=== PATIENT | male | born 1955 | race Caucasian/White ===

== ENCOUNTER 2020-12-11 15:31 | Inpatient (IN) | payer MEDICARE, OTHER ==
[~2020-12-11] VITALS: Ht 177.8 cm; Wt 122.7 kg
--- NOTE | 2020-12-11 18:17 | ED.ADGEN ---
Past Medical History Past Medical History: CAD, Diabetes-Type II, High Cholesterol, Hypertension Past Surgical History: Other Additional Past Surgical Histo: quad bypass Smoking Status: Former Smoker Alcohol Use: Rarely General Adult EDM: Chief Complaint: FINGER INJURY HPI: HPI: Patient is a 65 year old male who presents emergency department with complaints of pain in his left index finger after a folding chair he was sitting on yasir apsed and crushed his finger. Patient states he is right-handed. He reports decreased range of motion in the affected digit, obvious deformity, and pain. Patient reports his last tetanus shot was greater than 5 years ago. He states he has received both doses of the [employer] Covid immunization. Any other pain or complaints. He currently rates the pain in the affected digit a 3 out of 10 on the pain scale, pain increases with palpation. He denies taking anything for pain prior to arrival. Patient states that he last ate or drink something at noon today. Review of Systems: Review of Systems: Complete ROS is negative unless otherwise noted in HPI. Allergies: Allergies: Allergies Coded Allergies Type Severity Reaction Last Updated Verified metoprolol Allergy Severe ANAPHYLAXIS 12/11/20 Yes Physical Exam: PE: See Above Constitutional: Well developed, well nourished, no acute distress, non-toxic appearance. [] HENT: Normocephalic, atraumatic, bilateral external ears normal, nose normal. [] Eyes: PERRLA, EOMI, conjunctiva normal, no discharge. [] Neck: Normal range of motion, no stridor. [] Cardiovascular:Heart rate regular rhythm Lungs & Thorax: Respirations even and unlabored, no retractions, no respiratory distress Skin: Warm, dry, no erythema, no rash; open laceration to the left index finger, near complete amputation with damage to fingernail, bleeding controlled with bandage in place. [] Extremities: Left index finger: Deformity to the distal phalanx, no cyanosis, ROM limited due to injury Neurologic: Alert and oriented X 3, no focal deficits noted. [] Psychologic: Affect normal, judgement normal, mood normal. [] Current Patient Data: Labs: Laboratory Tests Test 12/11/20 18:06 Glucose (Fingerstick) 100 mg/dL (70-99) H Vital Signs: Vital Signs Date Time Temp Pulse Resp B/P (MAP) Pulse Ox O2 Delivery O2 Flow Rate FiO2 12/11/20 18:21 56 18 174/82 (112) 99 12/11/20 17:36 98.1 18.0 98.1 EKG: EKG: [] Heart Score: C/O Chest Pain: No Risk Scores: Score 0 - 3: 2.5% MACE over next 6 weeks - Discharge Home Score 4 - 6: 20.3% MACE over next 6 weeks - Admit for Clinical Observation Score 7 - 10: 72.7% MACE over next 6 weeks - Early Invasive Strategies Radiology/Procedures: Radiology/Procedures: PROCEDURE: HAND LEFT 3V EXAM: XR HAND_LEFT 3 VIEWS 12/11/2020 6:05 PM CLINICAL INDICATION: Left index finger laceration COMPARISON: None TECHNIQUE: 3 views of the left index finger FINDINGS: There is a large soft tissue laceration of the tip of the second finger. There is an oblique fracture of the shaft of the second distal phalanx, minimally displaced. No radiopaque foreign body. IMPRESSION: Large soft tissue laceration at the tip the second finger with underlying distal phalanx fracture. [] Course & Med Decision Making: Course & Med Decision Making Pertinent Labs and Imaging studies reviewed. (See chart for details) 1811-I spoke with Dr. Chery about the patient. He requests admission to the hospitalist and will schedule surgery for tomorrow morning. 1823-spoke with Dr. Chowdhury who is the admitting physician, and care was assumed following discussion of patient. Will admit patient for open fracture left index finger Patient's vital signs stable. Patient remains afebrile, appears nontoxic, respirations even and unlabored. Patient will be admitted to the medica l/surgical floor. Patient's case and plan of care also discussed with Dr. Roldan [] Kadeem Disclaimer: Kadeem Disclaimer: This electronic medical record was generated, in whole or in part, using a voice recognition dictation system. Departure Departure Impression: Primary Impression: Crushing injury of left index finger Disposition: ADMITTED INPATIENT Admitting Physician: JACINTO Zee) Condition: STABLE Referrals: YUN FIORE MD (PCP) Problem Qualifiers Primary Impression: Crushing injury of left index finger Encounter type: initial encounter Qualified Codes: S67.191A - Crushing injury of left index finger, initial encounter AZRA MOREIRA MEAT STRINGER Dec 11, 2020 18:17
[2020-12-11] MEDS ORDERED: DIPH,PERTUSS(ACELL),TET VAC/PF 0.5 ML SYRINGE. VAX IM ONE (18:30)
[2020-12-11] MEDS ORDERED: MORPHINE SULFATE 4 MG/ML VIAL. IV PRN (18:45)
[2020-12-11] MEDS ORDERED: ONDANSETRON PF 4 MG/2 ML VIAL. IV PRN (18:45)
--- NOTE | 2020-12-11 18:51 | RAD ---
EXAM: XR HAND_LEFT 3 VIEWS 12/11/2020 6:05 PM CLINICAL INDICATION: Left index finger laceration COMPARISON: None TECHNIQUE: 3 views of the left index finger FINDINGS: There is a large soft tissue laceration of the tip of the second finger. There is an obliq ue fracture of the shaft of the second distal phalanx, minimally displaced. No radiopaque foreign bod y. IMPRESSION: Large soft tissue laceration at the tip the second finger with underlying distal phalanx fracture. Electronically signed by: Latasha Coleman MD (12/11/2020 6:48 PM) [id number]
--- NOTE | 2020-12-11 19:04 | PDOC1 ---
History and Physical Date of Admission Date of Admission DATE: 12/11/20 TIME: 18:53 Identification/Chief Complaint Chief Complaint Left second finger injury Source Source: Caregiver, Patient History of Present Illness History of Present Illness Patient is a 65-year-old male with past medical history DM2, CAD, CHF, who presents to the ED with complaints of left second finger injury. Patient states she was seated in the folding along chair when he leaned forward to put his shoes on in his chair collapsed on his left index finger. He reports pain 10/10 at that time. In the ED he received morphine 4 mg with some moderate improvement. States his last tetanus shot was around 10 years ago, so he received tetanus vaccination in the ED. Patient also received IV Rocephin. Consultation was placed to orthopedic surgery in the ED. Will admit patient for further medical management. Past Medical History Past Medical History CAD, CHF, DM2, HLD, NSTEMI Past Surgical History Past Surgical History CABG x4, right hip replacement right second toe amputation, right third toe partial amputation Family History Family History CAD, DM2 Social History Smoke: Quit ALCOHOL: rare Drugs: None Current Medications Current Medications Current Medications Diphtheria/ Tetanus/Acell Pertussis (ADACEL TDap SYRINGE) 0.5 ml ONCE ONCE VAX IM Last administered on 12/11/20at 18:18; Start 12/11/20 at 18:30; Stop 12/11/20 at 18:31; Status DC Ondansetron HCl (Zofran) 4 mg PRN Q8HRS PRN IV NAUSEA/VOMITING; Start 12/11/20 at 18:45; Stop 12/12/20 at 18:44 Morphine Sulfate (Morphine Sulfate) 4 mg PRN Q2HR PRN IV PAIN; Start 12/11/20 at 18:45; Stop 12/12/20 at 18:44 Cefazolin Sodium/ Dextrose 50 ml @ 100 mls/hr 1X ONCE IV ; Start 12/11/20 at 19:00; Stop 12/11/20 at 19:29 Allergies Allergies: Coded Allergies: metoprolol (Verified Allergy, Severe, ANAPHYLAXIS, 12/11/20) ROS Review of System GENERAL: No history of weight change, weakness or fevers. SKIN: No bruising, hair changes or rashes. EYES: No blurred, double or loss of vision. NOSE AND THROAT: No history of nosebleeds, hoarseness or sore throat. HEART: Denies chest pain, denies palpitations. LUNGS: Denies cough, hemoptysis, wheezing or shortness of breath. GASTROINTESTINAL: Denies nausea, vomiting, abdominal pain. GENITOURINARY: Denies dysuria, frequency, urgency, hematuria. NEUROLOGIC: Denies history of numbness, tingling, tremor or weakness. PSYCHIATRIC: Denies anxiety, denies depression. ENDOCRINE: No history of heat or cold intolerance, polyuria or polydipsia. EXTREMITIES: Left index finger injury. Denies muscle weakness, joint pain, pain on walking or stiffness. Physical Exam Physical Exam General: Alert, Oriented X3, Cooperative, No acute distress HEENT: PERRLA, EOMI Lungs: Clear to auscultation, Normal air movement Heart: RRR, no murmurs Cardiovascular: S1, S2 Abdomen: Normal bowel sounds, Soft, No tenderness Extremities: Left second finger wrapped in bandage with bloody gauze. 2+ bilateral lower extremity edema. No clubbing, No cyanosis Skin: No rashes, No significant lesion Neuro: Normal speech, Normal tone, Sensation intact Psych/Mental Status: Mental status NL, Mood NL Vitals Vitals Vital Signs Date Time Temp Pulse Resp B/P (MAP) Pulse Ox O2 Delivery O2 Flow Rate FiO2 12/11/20 17:36 98.1 55 175/87 (116) 94 18.0 98.1 Labs Labs Laboratory Tests Test 12/11/20 18:06 Glucose (Fingerstick) 100 mg/dL (70-99) Laboratory Tests Test 12/11/20 18:06 Glucose (Fingerstick) 100 mg/dL (70-99) VTE Prophylaxis Ordered VTE Prophylaxis Devices: No VTE Pharmacological Prophylaxi: Yes Assessment/Plan Assessment/Plan Left second finger crush injury with partial amputation DM2 Unspecified CHF CAD Plan: Consultation placed to orthopedic surgery in ED Anticipate surgery tonight or tomorrow morning Empiric antibiotics and tetanus vaccination received in the ED Pain management HDSS insulin Resume home medications FEN - Cardiac diet PPX - Heparin FULL CODE Dispo - inpatient for above Advance Care Planning: Total time spent [id number] with patient 16 minutes in discussion with goals of care, comfort care, end-of-life care, pain management, code status; patient names his (Nataly Mills) as surrogate decision-maker. Justifications for Admission Other Justification GLYNN DAIGLE MD Dec 11, 2020 19:04
[2020-12-11 19:13] LABS: BASO # 0.1 x10^3/uL (0.0-0.2); BASO % 1 % (0-3); EOS # 0.3 x10^3/uL (0.0-0.7); EOS % 4 % (0-3); HEMATOCRIT 43.8 % (39.0-53.0); HEMOGLOBIN 15.6 g/dL (13.0-17.5); LYMPH # 2.1 x10^3/uL (1.0-4.8); LYMPH % 26 % (24-48); MEAN CORPUSCULAR HEMOGLOBIN 31 pg (25-35); MEAN CORPUSCULAR HGB CONC 36 g/dL (31-37); MEAN CORPUSCULAR VOLUME 87 fL (79-100); MONO # 0.7 x10^3/uL (0.0-1.1); MONO % 9 % (0-9); NEUT # 4.9 x10^3/uL (1.8-7.7); NEUT % 61 % (31-73); PLATELET COUNT 198 x10^3/uL (140-400); RED BLOOD COUNT 5.03 x10^6/uL (4.30-5.70); RED CELL DISTRIBUTION WIDTH 14.2 % (11.5-14.5); WHITE BLOOD COUNT 8.2 x10^3/uL (4.0-11.0)
[2020-12-11] MEDS ORDERED: BISACODYL 10 MG SUPP.RECT. PR PRN (19:15)
[2020-12-11] MEDS ORDERED: ONDANSETRON PF 4 MG/2 ML VIAL. IVP PRN (19:15)
[2020-12-11] MEDS ORDERED: MAG HYDROX/ALUMINUM HYD/SIMETH 30 ML ORAL.SUSP PO PRN (19:15)
[2020-12-11] MEDS ORDERED: MAGNESIUM HYDROXIDE 2,400 MG/30 ML ORAL.SUSP. PO PRN (19:15)
[2020-12-11] MEDS ORDERED: CALCIUM CARBONATE 500 MG TAB.CHEW PO PRN (19:15)
[2020-12-11] MEDS ORDERED: ACETAMINOPHEN 325 MG TABLET. PO PRN (19:15)
[2020-12-11] MEDS ORDERED: HYDROmorphone 2 MG/ML VIAL IVP PRN (19:15)
[2020-12-11] MEDS ORDERED: MORPHINE SULFATE 10 MG/ML VIAL. IV PRN (19:15)
[2020-12-11] MEDS ORDERED: ZOLPIDEM 5 MG TABLET. PO PRN (19:15)
[2020-12-11] MEDS ORDERED: MORPHINE SULFATE 2 MG/ML VIAL. IV PRN (19:15)
[2020-12-11] MEDS ORDERED: HYDROcodone/APAP 5/325MG 1 TAB TABLET PO PRN ×2 (19:15)
[2020-12-11] MEDS ORDERED: DEXTROSE 50% 25 GM / 50ML DISP.SYRIN. IV PRN (19:15)
[2020-12-11] MEDS ORDERED: IV DEXTROSE 5% 250 ML BAG. IV PRN (19:15)
[2020-12-11] MEDS ORDERED: oxyCODONE/APAP 5/325 1 TAB TABLET PO PRN ×2 (19:15)
[2020-12-11 19:23] LABS: CALCIUM 8.7 mg/dL (8.5-10.1); CREATININE 0.9 mg/dL (0.7-1.3); GFR 84.4; POTASSIUM 3.6 mmol/L (3.5-5.1)
[2020-12-11 21:13] VITALS: BP 171/88
--- NOTE | 2020-12-11 21:15 | NUR ---
pt. arrived on unit at 2112 by wheelchair from the ER. Pt. does not complain of any pain at this time. They are very pleasant and alert. Call light was placed within reach and bed in lowest position. Will continue to monitor.
[2020-12-11] MEDS: HEPARIN for SUB-Q USE 5,000 UNIT/ML VIAL. SQ SCH (22:00)
[2020-12-11 22:55] VITALS: BP 134/69
--- NOTE | 2020-12-11 23:58 | NUR ---
Heparin non-administered tonight. Pt. is having surgery early tomorrow morning.
[2020-12-12] MEDS ORDERED: LISI20TA18 PO (00:33)
[2020-12-12] MEDS ORDERED: INSU100V13 SQ (00:33)
[2020-12-12] MEDS ORDERED: ATOR40TA59 PO (00:33)
[2020-12-12] MEDS ORDERED: METF10007 PO (00:33)
[2020-12-12] MEDS ORDERED: CARV3.1210 PO (00:33)
[2020-12-12] MEDS ORDERED: AMLO-186 PO (00:33)
[2020-12-12] MEDS ORDERED: INSU100I17 SQ (00:33)
[2020-12-12] MEDS: HEPARIN for SUB-Q USE 5,000 UNIT/ML VIAL. SQ SCH ×3 (06:00→21:47)
[2020-12-12] MEDS ORDERED: BUPIVACAINE MPF 0.5% 30 ML VIAL. ONE (07:10)
[2020-12-12] MEDS ORDERED: PROPOFOL 10 MG/ML (20ML) VIAL. IV ONE (07:20)
[2020-12-12] MEDS ORDERED: LIDOCAINE 2% PF 5 ML VIAL. ONE (07:20)
--- NOTE | 2020-12-12 07:53 | CONS ---
DATE OF CONSULTATION: 12/12/2020 ORTHOPEDIC CONSULTATION CHIEF COMPLAINT: Left index finger fracture and partial amputation. HISTORY OF PRESENT ILLNESS: The patient is a 65-year-old male with an otherwise well controlled diabetes who had a chair ____ and the mechanism of the chair crushed and lacerated and broke his finger. He is right hand dominant and had involvement of the left index finger. He does have some throbbing pain as of now and he does note a history of amputation of 2 of his toes due to deformities from recurrence of hammer toes and pressure was putting on the other toes. PAST MEDICAL HISTORY: He has a medical history of type 2 diabetes, otherwise well controlled; hypercholesterolemia; hypertension and coronary artery disease. PAST SURGICAL HISTORY: Toe amputations and multiple previous hammertoe surgeries and a quadruple bypass. SOCIAL HISTORY: He is a former smoker, retired . Rare alcohol use. Denies drug use. ALLERGIES: INCLUDE METOPROLOL, WHICH IS AN ANAPHYLACTIC ALLERGY. REVIEW OF SYSTEMS: Really significant only for the left index finger injury at present. Again, diabetes is well controlled. He has no other pertinent medical problems and has received both doses of COVID in the immunization. Denies any chest pain, shortness of breath, fever, chills, focal weakness, numbness, tingling or other constitutional symptoms. PHYSICAL EXAMINATION: VITAL SIGNS: A pleasant, cooperative, 65-year-old male, alert and oriented, no acute distress. MUSCULOSKELETAL: Examination of the left index finger, he does have a near complete amputation which is hanging on by a small bridge of skin, nail bed is damaged and he does have an open fracture of the left distal phalanx. Flexor and extensor tendons are otherwise intact. He has normal examination of the contralateral right hand, bilateral wrists, elbows, shoulders. Well-healed amputated toes as described above as well. LABORATORY DATA: Fingerstick glucose last evening on admission was 100 mg/dL. He is afebrile. X-rays show an oblique fracture, approximately the midpoint area of the distal flange of the left index finger and overlying soft tissue laceration. IMPRESSION: Near complete amputation of left index finger with nail bed damage and open fracture. TREATMENT PLAN: I went over with him the treatment options of washout and attempted fixation. He is adamant that he really would just like the finger taken off and shortened rather than facing potential diabetic complications of fixation and additional procedures. He has been through this many times with his toe surgeries and he is very happy and resigned to the fact that his left index finger would be shorter and he would like to minimize the amount of procedures or potential complication. I told him as a result that we would have to shorten up the bone to obtain reasonable coverage and he agrees to proceed with this plan and has been n.p.o. since midnight and he wants to proceed with surgical evaluation and treatment. He is aware of the possibility of infection, sensitivity, possibility of additional procedures if inadequate healing is obtained as well as medical or other anesthetic complications. ROXNAE DR: Logan TID: [id number]
--- NOTE | 2020-12-12 07:59 | PDOC ---
[facility] PROGRESS NOTE Date of Service DOS: DATE: 12/12/20 TIME: 07:56 Chief Complaint Chief Complaint A/P: Left second finger crush injury with partial amputation - no further testing prior to planned surgery DM2 - basal bolus plus insulin when eating Chronic diastolic CHF -continue BENNETT, beta-joanne, statin, aspirin CAD - stable, s/p CABG. Cont perioperative BB. Plan: Consultation placed to orthopedic surgery in ED Anticipate surgery tonight or tomorrow morning Empiric antibiotics and tetanus vaccination received in the ED Pain management HDSS insulin Resume home medications FEN - Cardiac diet PPX - Heparin FULL CODE Dispo - inpatient for above Advance Care Planning: Total time spent [id number] with patient 16 minutes in discussion with goals of care, comfort care, end-of-life care, pain management, code status; patient names his (Nataly Mills) as surrogate decision-maker. History of Present Illness History of Present Illness Mr Mills is a 65-year-old male with past medical history DM2, CAD s/p CABG, CHF, HLD who presents to the ED with complaints of left second finger injury. Patient states she was seated in the folding along chair when he leaned forward to put his shoes on in his chair collapsed on his left index finger. He reports pain 10/10 at that time. In the ED he received morphine 4 mg with some moderate improvement. States his last tetanus shot was around 10 years ago, so he rec eived tetanus vaccination in the ED. Patient also received IV Rocephin. Consultation was placed to orthopedic surgery in the ED. Admitted patient for further medical management. Seen pre and postoperatively. Finger dressing continues to fall off. Was fully attached. Afebrile Vitals/I&O Vitals/I&O: Vital Signs Date Time Temp Pulse Resp B/P (MAP) Pulse Ox O2 Delivery O2 Flow Rate FiO2 12/11/20 22:55 98.0 47 18 134/69 (90) 94 Room Air 98.0 12/11/20 17:36 18.0 I & O 12/11/20 12/11/20 12/12/20 15:00 23:00 07:00 Intake Total 50 ml Balance 50 ml Physical Exam General: Alert, Cooperative Heart: Regular rate, Normal S1, Normal S2 Lungs: Clear Abdomen: Normal bowel sounds, Soft Extremities: No clubbing, No cyanosis Skin: No rashes, No breakdown Labs Labs: Laboratory Tests Test 12/11/20 18:06 12/11/20 19:00 12/11/20 20:47 12/11/20 21:26 Glucose (Fingerstick) 100 mg/dL (70-99) 122 mg/dL (70-99) White Blood Count 8.2 x10^3/uL (4.0-11.0) Red Blood Count 5.03 x10^6/uL (4.30-5.70) Hemoglobin 15.6 g/dL (13.0-17.5) Hematocrit 43.8 % (39.0-53.0) Mean Corpuscular Volume 87 fL (79-100) Mean Corpuscular Hemoglobin 31 pg (25-35) Mean Corpuscular Hemoglobin Concent 36 g/dL (31-37) Red Cell Distribution Width 14.2 % (11.5-14.5) Platelet Count 198 x10^3/uL (140-400) Neutrophils (%) (Auto) 61 % (31-73) Lymphocytes (%) (Auto) 26 % (24-48) Monocytes (%) (Auto) 9 % (0-9) Eosinophils (%) (Auto) 4 % (0-3) Basophils (%) (Auto) 1 % (0-3) Neutrophils # (Auto) 4.9 x10^3/uL (1.8-7.7) Lymphocytes # (Auto) 2.1 x10^3/uL (1.0-4.8) Monocytes # (Auto) 0.7 x10^3/uL (0.0-1.1) Eosinophils # (Auto) 0.3 x10^3/uL (0.0-0.7) Basophils # (Auto) 0.1 x10^3/uL (0.0-0.2) Sodium Level 144 mmol/L (136-145) Potassium Level 3.6 mmol/L (3.5-5.1) Chloride Level 107 mmol/L (98-107) Carbon Dioxide Level 28 mmol/L (21-32) Anion Gap 9 (6-14) Blood Urea Nitrogen 17 mg/dL (8-26) Creatinine 0.9 mg/dL (0.7-1.3) Estimated GFR (Cockcroft-Gault) 84.4 Glucose Level 106 mg/dL (70-99) Calcium Level 8.7 mg/dL (8.5-10.1) SARS-CoV-2 Antigen (Rapid) Negative (NEGATIVE) Test 12/12/20 06:39 Glucose (Fingerstick) 144 mg/dL (70-99) Comment Review of Relevant I have reviewed the following items sean (where applicable) has been applied. Medications: Current Medications Medications (Trade) Dose Ordered Sig/Iliana Route PRN Reason Start Time Stop Time Status Last Admin Dose Admin Diphtheria/ Tetanus/Acell Pertussis (ADACEL TDap SYRINGE) 0.5 ml ONCE ONCE VAX IM 12/11/20 18:30 12/11/20 18:31 DC 12/11/20 18:18 Cefazolin Sodium/ Dextrose 50 ml @ 100 mls/hr 1X ONCE IV 12/11/20 19:00 12/11/20 19:29 DC 12/11/20 19:14 Cefazolin Sodium/ Dextrose 50 ml @ 100 mls/hr 1X PREOP PRN IV PRIOR TO PROCEDURE 12/13/20 06:00 12/13/20 18:00 12/12/20 07:24 Justifications for Admission Other Justification Left second finger crush injury RAMONA NAIR MD Dec 12, 2020 07:59
[2020-12-12] MEDS: CARVEDILOL 3.125 MG TABLET. PO SCH ×2 (08:00→17:00)
[2020-12-12] MEDS ORDERED: fentaNYL PF VIAL 100 MCG/2 ML VIAL IVP PRN ×2 (08:00)
[2020-12-12] MEDS ORDERED: IV RINGERS,LACTATED 1000ML 1,000 ML IV SCH (08:00)
[2020-12-12] MEDS ORDERED: PROCHLORPERAZINE 10 MG/2 ML VIAL. IVP PRN (08:00)
[2020-12-12] MEDS ORDERED: MORPHINE SULFATE 2 MG/ML VIAL. IVP PRN (08:00)
[2020-12-12] MEDS ORDERED: HYDROmorphone 2 MG/ML VIAL IVP PRN (08:00)
[2020-12-12] MEDS: INSULIN LISPRO 300 UNITS/3 ML VIAL. SQ SCH ×3 (08:00→17:58)
[2020-12-12] MEDS ORDERED: DEXAMETHASONE SOD PHOS 4 MG/ML VIAL ONE (08:10)
[2020-12-12] MEDS ORDERED: ONDANSETRON PF 4 MG/2 ML VIAL. ONE (08:10)
--- NOTE | 2020-12-12 09:48 | NUR ---
SW following. Discussed with RN, pt from home, room air, NPO, rapid COVID-19 negative. Pt had surgery this morning. RN advised no SW needs at this time. SW will continue to follow.
[2020-12-12 10:52] LABS: BASO % 1 % (0-3); EOS # 0.1 x10^3/uL (0.0-0.7); EOS % 1 % (0-3); HEMOGLOBIN 14.8 g/dL (13.0-17.5); LYMPH # 0.8 x10^3/uL (1.0-4.8); LYMPH % 10 % (24-48); MEAN CORPUSCULAR HEMOGLOBIN 31 pg (25-35); MEAN CORPUSCULAR HGB CONC 35 g/dL (31-37); MEAN CORPUSCULAR VOLUME 88 fL (79-100); MONO # 0.2 x10^3/uL (0.0-1.1); MONO % 3 % (0-9); NEUT % 86 % (31-73); PLATELET COUNT 182 x10^3/uL (140-400); RED BLOOD COUNT 4.78 x10^6/uL (4.30-5.70); RED CELL DISTRIBUTION WIDTH 14.3 % (11.5-14.5); WHITE BLOOD COUNT 8.2 x10^3/uL (4.0-11.0)
[2020-12-12 11:00] VITALS: BP 154/74
[2020-12-12 11:01] LABS: CALCIUM 8.3 mg/dL (8.5-10.1); CREATININE 0.9 mg/dL (0.7-1.3); GFR 84.4
[2020-12-12 15:00] VITALS: BP 132/65
--- NOTE | 2020-12-12 16:25 | NUR ---
Wound Care Pt seen per pt request, as he stated his surgical dressing was saturated and falling off. Remainder of L index finger dressing removed, cleaned with saline, and redressed with Xeroform over pin and incision/tissue, covered with non-adherent gauze, finger splint and tube gauze. Nail bed dusky greyish purple, sutures intact, pt stated finger was numb and did not hurt. Spoke with pt re: the possibility of losing the nail and tip of his finger, and instructed pt to assess finger with each dressing change, pt v/u. Pt tolerated well and stated dressing felt much better. Will defer dressing change orders to Dr. Chery.
[2020-12-12 19:00] VITALS: BP 147/69
--- NOTE | 2020-12-12 20:24 | PDOC4 ---
Operative Note Operative Note Date of surgery: 12/12/2020 Preoperative diagnosis: Left index finger crush injury with open distal phalanx fracture Postoperative diagnosis: Same with excellent vascularity of fingertip and no gross contamination Operative procedure: Irrigation debridement and open reduction fixation of left index finger open distal phalanx fracture Surgeon: Vik Assist: Vijay serrano Anesthesia: General plus local Estimated blood loss: 25 cc Complications: None Operative indications: Please see my orthopedic consultation note and note that we were initially planning to shorten and close the open finger fracture. We had talked about the possibility of difficulty nonhealing need for revision or risk of infection with the open fracture. He agrees to proceed with surgical evaluation and treatment Operative text: Patient was identified procedure verified patient placed in the supine position on operating table. After adequate amounts of general anesthesia were administered the left upper extremity was prepped and draped in standard sterile fashion and after timeout was performed patient procedure identified and verified the finger was thoroughly examined and noted to have excellent distal blood flow with intact capillary refill and no gross contamination of the open fracture. I elected at this point rather than to bruce rten and close the finger as he had essentially a transverse type laceration, that much more shortening would be required then really necessary because of his good distal blood flow and instead thorough irrigation carried out normal saline solution and gross debridement of the open fracture site. A 0.062 K wire was advanced distally through the distal aspect of the fracture site out the end of the finger and the finger was reduced under fluoroscopic guidance and the K wire driven across with good fixation into the proximal portion of the distal phalange. Reduction was confirmed under multiple fluoroscopic views K wire was trimmed and a Darya ball was placed for protection and skin closure with the nailbed reduced carried out with nylon suture in a simple fashion. He maintained excellent vascularity throughout and a volar splint was placed after sterile dressings. Patient was returned to recovery room stable condition having tolerated procedure well. Vijay serrano assisted in patient positioning prepping draping retraction closure and dressings BRENDA ROJO MD Dec 12, 2020 20:24
[2020-12-12] MEDS ORDERED: INSULIN GLARGINE SYRINGE. SQ SCH (21:00)
[2020-12-12] MEDS ORDERED: ATORVASTATIN CALCIUM 40 MG TABLET. PO SCH (21:00)
[2020-12-12 23:00] VITALS: BP 118/62
[2020-12-13 03:00] VITALS: BP 131/71
[2020-12-13] MEDS: HEPARIN for SUB-Q USE 5,000 UNIT/ML VIAL. SQ SCH ×2 (05:51→14:00)
[2020-12-13 07:00] VITALS: BP 153/76
--- NOTE | 2020-12-13 07:48 | PDOC ---
PROGRESS NOTES Date of Service DATE: 12/13/20 TIME: 07:45 Subjective Subjective Problems overnight: He had an episode where the dressing got caught and pulled off and was redone by wound care yesterday. No pain or other complaints Objective Vital Signs Vital Signs Date Time Temp Pulse Resp B/P (MAP) Pulse Ox O2 Delivery O2 Flow Rate FiO2 12/13/20 07:00 98.6 55 18 153/76 (101) 92 Room Air 98.6 12/12/20 08:18 10 Physical Exam On examination the finger was in a little bit of flexion with the proximal aspect of the nail elevated. I redid the dressing and use the splint to keep the finger reduced and the nailbed placed Xeroform sterile dressing and an elastic gauze tied around the wrist followed by Coban over the finger so it will protect him better and have little chance of coming off Labs Laboratory Tests Test 12/11/20 18:06 12/11/20 19:00 12/11/20 20:47 12/11/20 21:26 Glucose (Fingerstick) 100 mg/dL (70-99) 122 mg/dL (70-99) White Blood Count 8.2 x10^3/uL (4.0-11.0) Red Blood Count 5.03 x10^6/uL (4.30-5.70) Hemoglobin 15.6 g/dL (13.0-17.5) Hematocrit 43.8 % (39.0-53.0) Mean Corpuscular Volume 87 fL (79-100) Mean Corpuscular Hemoglobin 31 pg (25-35) Mean Corpuscular Hemoglobin Concent 36 g/dL (31-37) Red Cell Distribution Width 14.2 % (11.5-14.5) Platelet Count 198 x10^3/uL (140-400) Neutrophils (%) (Auto) 61 % (31-73) Lymphocytes (%) (Auto) 26 % (24-48) Monocytes (%) (Auto) 9 % (0-9) Eosinophils (%) (Auto) 4 % (0-3) Basophils (%) (Auto) 1 % (0-3) Neutrophils # (Auto) 4.9 x10^3/uL (1.8-7.7) Lymphocytes # (Auto) 2.1 x10^3/uL (1.0-4.8) Monocytes # (Auto) 0.7 x10^3/uL (0.0-1.1) Eosinophils # (Auto) 0.3 x10^3/uL (0.0-0.7) Basophils # (Auto) 0.1 x10^3/uL (0.0-0.2) Sodium Level 144 mmol/L (136-145) Potassium Level 3.6 mmol/L (3.5-5.1) Chloride Level 107 mmol/L (98-107) Carbon Dioxide Level 28 mmol/L (21-32) Anion Gap 9 (6-14) Blood Urea Nitrogen 17 mg/dL (8-26) Creatinine 0.9 mg/dL (0.7-1.3) Estimated GFR (Cockcroft-Gault) 84.4 Glucose Level 106 mg/dL (70-99) Calcium Level 8.7 mg/dL (8.5-10.1) SARS-CoV-2 Antigen (Rapid) Negative (NEGATIVE) Test 12/12/20 06:39 12/12/20 08:44 12/12/20 10:20 12/12/20 11:55 Glucose (Fingerstick) 144 mg/dL (70-99) 156 mg/dL (70-99) 258 mg/dL (70-99) White Blood Count 8.2 x10^3/uL (4.0-11.0) Red Blood Count 4.78 x10^6/uL (4.30-5.70) Hemoglobin 14.8 g/dL (13.0-17.5) Hematocrit 42.0 % (39.0-53.0) Mean Corpuscular Volume 88 fL (79-100) Mean Corpuscular Hemoglobin 31 pg (25-35) Mean Corpuscular Hemoglobin Concent 35 g/dL (31-37) Red Cell Distribution Width 14.3 % (11.5-14.5) Platelet Count 182 x10^3/uL (140-400) Neutrophils (%) (Auto) 86 % (31-73) Lymphocytes (%) (Auto) 10 % (24-48) Monocytes (%) (Auto) 3 % (0-9) Eosinophils (%) (Auto) 1 % (0-3) Basophils (%) (Auto) 1 % (0-3) Neutrophils # (Auto) 7.0 x10^3/uL (1.8-7.7) Lymphocytes # (Auto) 0.8 x10^3/uL (1.0-4.8) Monocytes # (Auto) 0.2 x10^3/uL (0.0-1.1) Eosinophils # (Auto) 0.1 x10^3/uL (0.0-0.7) Basophils # (Auto) 0.0 x10^3/uL (0.0-0.2) Sodium Level 143 mmol/L (136-145) Potassium Level 4.0 mmol/L (3.5-5.1) Chloride Level 106 mmol/L (98-107) Carbon Dioxide Level 28 mmol/L (21-32) Anion Gap 9 (6-14) Blood Urea Nitrogen 14 mg/dL (8-26) Creatinine 0.9 mg/dL (0.7-1.3) Estimated GFR (Cockcroft-Gault) 84.4 Glucose Level 218 mg/dL (70-99) Calcium Level 8.3 mg/dL (8.5-10.1) Test 12/12/20 16:47 12/13/20 07:39 Glucose (Fingerstick) 211 mg/dL (70-99) 152 mg/dL (70-99) Laboratory Tests Test 12/12/20 08:44 12/12/20 10:20 12/12/20 11:55 12/12/20 16:47 Glucose (Fingerstick) 156 mg/dL (70-99) 258 mg/dL (70-99) 211 mg/dL (70-99) White Blood Count 8.2 x10^3/uL (4.0-11.0) Red Blood Count 4.78 x10^6/uL (4.30-5.70) Hemoglobin 14.8 g/dL (13.0-17.5) Hematocrit 42.0 % (39.0-53.0) Mean Corpuscular Volume 88 fL (79-100) Mean Corpuscular Hemoglobin 31 pg (25-35) Mean Corpuscular Hemoglobin Concent 35 g/dL (31-37) Red Cell Distribution Width 14.3 % (11.5-14.5) Platelet Count 182 x10^3/uL (140-400) Neutrophils (%) (Auto) 86 % (31-73) Lymphocytes (%) (Auto) 10 % (24-48) Monocytes (%) (Auto) 3 % (0-9) Eosinophils (%) (Auto) 1 % (0-3) Basophils (%) (Auto) 1 % (0-3) Neutrophils # (Auto) 7.0 x10^3/uL (1.8-7.7) Lymphocytes # (Auto) 0.8 x10^3/uL (1.0-4.8) Monocytes # (Auto) 0.2 x10^3/uL (0.0-1.1) Eosinophils # (Auto) 0.1 x10^3/uL (0.0-0.7) Basophils # (Auto) 0.0 x10^3/uL (0.0-0.2) Sodium Level 143 mmol/L (136-145) Potassium Level 4.0 mmol/L (3.5-5.1) Chloride Level 106 mmol/L (98-107) Carbon Dioxide Level 28 mmol/L (21-32) Anion Gap 9 (6-14) Blood Urea Nitrogen 14 mg/dL (8-26) Creatinine 0.9 mg/dL (0.7-1.3) Estimated GFR (Cockcroft-Gault) 84.4 Glucose Level 218 mg/dL (70-99) Calcium Level 8.3 mg/dL (8.5-10.1) Test 12/13/20 07:39 Glucose (Fingerstick) 152 mg/dL (70-99) Assessment Assessment POD#1 open treatment of an open distal phalanx fracture left index finger Plan Plan of Care Stable for discharge from an orthopedic standpoint, some oral Keflex recommended for perhaps a dose of 5 days I plan to see him back on Thursday for a wound check Justicifation of Admission Dx: Justifications for Admission: Justification of Admission Dx: N/A BRENDA ROJO MD Dec 13, 2020 07:48
[2020-12-13] MEDS: CARVEDILOL 3.125 MG TABLET. PO SCH (08:00)
[2020-12-13] MEDS: INSULIN LISPRO 300 UNITS/3 ML VIAL. SQ SCH ×2 (08:46→13:30)
--- NOTE | 2020-12-13 10:09 | NUR ---
SW following. Discussed with RN, pt from home, room air, NPO, rapid COIVD-9 negative. Ortho okay for discharge home today. RN anticipates pt will discharge, advised no SW needs at this time.
[2020-12-13 11:00] VITALS: BP 129/64
--- NOTE | 2020-12-13 11:53 | PDOC ---
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 Cont perioperative BB. Plan: Consultation placed to orthopedic surgery in ED Anticipate surgery tonight or tomorrow morning Empiric antibiotics and tetanus vaccination received in the ED Pain management HDSS insulin Resume home medications FEN - Cardiac diet PPX - Heparin FULL CODE Dispo - inpatient for above Advance Care Planning: Total time spent [id number] with patient 16 minutes in discussion with goals of care, comfort care, end-of-life care, pain management, code status; patient names his (Nataly Mills) as surrogate decision-maker. History of Present Illness History of Present Illness Mr Mills is a 65-year-old male with past medical history DM2, CAD s/p CABG, CHF, HLD who presents to the ED with complaints of left second finger injury. Patient states she was seated in the folding along chair when he leaned forward to put his shoes on in his chair collapsed on his left index finger. He reports pain 10/10 at that time. In the ED he received morphine 4 mg with some moderate improvement. States his last tetanus shot was around 10 years ago, so he re ceived tetanus vaccination in the ED. Patient also received IV Rocephin. Consultation was placed to orthopedic surgery in the ED. Admitted patient for further medical management. 12/12: Seen pre and postoperatively. Finger dressing continues to fall off. Was fully attached. Afebrile Wound redressed by orthopedic surgery. Pain controlled without narcotics. Glucose in the 120s. Has [facility] follow-up outpatient okay to go home today. Afebrile Vitals/I&O Vitals/I&O: Vital Signs Date Time Temp Pulse Resp B/P (MAP) Pulse Ox O2 Delivery O2 Flow Rate FiO2 12/13/20 11:00 98.6 49 18 129/64 (85) 94 Room Air 98.6 12/12/20 08:18 10 I & O 12/12/20 12/12/20 12/13/20 15:00 23:00 07:00 Intake Total 700 ml 300 ml 500 ml Output Total 25 ml 300 ml Balance 675 ml 300 ml 200 ml Physical Exam General: Alert, Cooperative Heart: Regular rate, Normal S1, Normal S2 Lungs: Clear Abdomen: Normal bowel sounds, Soft Extremities: No clubbing, No cyanosis Skin: No rashes, No breakdown Labs Labs: Laboratory Tests Test 12/12/20 11:55 12/12/20 16:47 12/13/20 07:39 12/13/20 10:30 Glucose (Fingerstick) 258 mg/dL (70-99) 211 mg/dL (70-99) 152 mg/dL (70-99) 166 mg/dL (70-99) Comment Review of Relevant I have reviewed the following items sean (where applicable) has been applied. Medications: Current Medications Medications (Trade) Dose Ordered Sig/Iliana Route PRN Reason Start Time Stop Time Status Last Admin Dose Admin Cefazolin Sodium/ Dextrose 50 ml @ 100 mls/hr 1X PREOP PRN IV PRIOR TO PROCEDURE 12/13/20 06:00 12/13/20 18:00 12/12/20 07:24 Amlodipine Besylate (Norvasc) 5 mg DAILY PO 12/13/20 09:00 12/13/20 08:44 Atorvastatin Calcium (Lipitor) 80 mg QHS PO 12/12/20 21:00 12/12/20 21:41 Insulin Glargine (Lantus Syringe) 40 unit QHS SQ 12/12/20 21:00 12/12/20 21:00 Justifications for Admission Other Justification Left second finger crush injury RAMONA NAIR MD Dec 13, 2020 11:53
--- NOTE | 2020-12-13 11:55 | PDOC3 ---
Discharge Summary Visit Information Date of Admission: Dec 11, 2020 Date of Discharge: Dec 13, 2020 Admitting Diagnosis: left index finger crushed Final Diagnosis Left index finger crushed Brief Hospital Course Allergies Allergies Coded Allergies Type Severity Reaction Last Updated Verified metoprolol Allergy Severe ANAPHYLAXIS 12/11/20 Yes Vital Signs Vital Signs Date Time Temp Pulse Resp B/P (MAP) Pulse Ox O2 Delivery O2 Flow Rate FiO2 12/13/20 11:00 98.6 49 18 129/64 (85) 94 Room Air 98.6 12/12/20 08:18 10 Lab Results Laboratory Tests Test 12/11/20 18:06 12/11/20 19:00 12/11/20 20:47 12/11/20 21:26 Glucose (Fingerstick) 100 mg/dL (70-99) 122 mg/dL (70-99) White Blood Count 8.2 x10^3/uL (4.0-11.0) Red Blood Count 5.03 x10^6/uL (4.30-5.70) Hemoglobin 15.6 g/dL (13.0-17.5) Hematocrit 43.8 % (39.0-53.0) Mean Corpuscular Volume 87 fL (79-100) Mean Corpuscular Hemoglobin 31 pg (25-35) Mean Corpuscular Hemoglobin Concent 36 g/dL (31-37) Red Cell Distribution Width 14.2 % (11.5-14.5) Platelet Count 198 x10^3/uL (140-400) Neutrophils (%) (Auto) 61 % (31-73) Lymphocytes (%) (Auto) 26 % (24-48) Monocytes (%) (Auto) 9 % (0-9) Eosinophils (%) (Auto) 4 % (0-3) Basophils (%) (Auto) 1 % (0-3) Neutrophils # (Auto) 4.9 x10^3/uL (1.8-7.7) Lymphocytes # (Auto) 2.1 x10^3/uL (1.0-4.8) Monocytes # (Auto) 0.7 x10^3/uL (0.0-1.1) Eosinophils # (Auto) 0.3 x10^3/uL (0.0-0.7) Basophils # (Auto) 0.1 x10^3/uL (0.0-0.2) Sodium Level 144 mmol/L (136-145) Potassium Level 3.6 mmol/L (3.5-5.1) Chloride Level 107 mmol/L (98-107) Carbon Dioxide Level 28 mmol/L (21-32) Anion Gap 9 (6-14) Blood Urea Nitrogen 17 mg/dL (8-26) Creatinine 0.9 mg/dL (0.7-1.3) Estimated GFR (Cockcroft-Gault) 84.4 Glucose Level 106 mg/dL (70-99) Calcium Level 8.7 mg/dL (8.5-10.1) SARS-CoV-2 Antigen (Rapid) Negative (NEGATIVE) Test 12/12/20 06:39 12/12/20 08:44 12/12/20 10:20 12/12/20 11:55 Glucose (Fingerstick) 144 mg/dL (70-99) 156 mg/dL (70-99) 258 mg/dL (70-99) White Blood Count 8.2 x10^3/uL (4.0-11.0) Red Blood Count 4.78 x10^6/uL (4.30-5.70) Hemoglobin 14.8 g/dL (13.0-17.5) Hematocrit 42.0 % (39.0-53.0) Mean Corpuscular Volume 88 fL (79-100) Mean Corpuscular Hemoglobin 31 pg (25-35) Mean Corpuscular Hemoglobin Concent 35 g/dL (31-37) Red Cell Distribution Width 14.3 % (11.5-14.5) Platelet Count 182 x10^3/uL (140-400) Neutrophils (%) (Auto) 86 % (31-73) Lymphocytes (%) (Auto) 10 % (24-48) Monocytes (%) (Auto) 3 % (0-9) Eosinophils (%) (Auto) 1 % (0-3) Basophils (%) (Auto) 1 % (0-3) Neutrophils # (Auto) 7.0 x10^3/uL (1.8-7.7) Lymphocytes # (Auto) 0.8 x10^3/uL (1.0-4.8) Monocytes # (Auto) 0.2 x10^3/uL (0.0-1.1) Eosinophils # (Auto) 0.1 x10^3/uL (0.0-0.7) Basophils # (Auto) 0.0 x10^3/uL (0.0-0.2) Sodium Level 143 mmol/L (136-145) Potassium Level 4.0 mmol/L (3.5-5.1) Chloride Level 106 mmol/L (98-107) Carbon Dioxide Level 28 mmol/L (21-32) Anion Gap 9 (6-14) Blood Urea Nitrogen 14 mg/dL (8-26) Creatinine 0.9 mg/dL (0.7-1.3) Estimated GFR (Cockcroft-Gault) 84.4 Glucose Level 218 mg/dL (70-99) Calcium Level 8.3 mg/dL (8.5-10.1) Test 12/12/20 16:47 12/13/20 07:39 12/13/20 10:30 Glucose (Fingerstick) 211 mg/dL (70-99) 152 mg/dL (70-99) 166 mg/dL (70-99) Laboratory Tests Test 12/12/20 11:55 12/12/20 16:47 12/13/20 07:39 12/13/20 10:30 Glucose (Fingerstick) 258 mg/dL (70-99) 211 mg/dL (70-99) 152 mg/dL (70-99) 166 mg/dL (70-99) Brief Hospital Course Mr Mills is a 65-year-old male with past medical history DM2, CAD s/p CABG, CHF, HLD who presents to the ED with complaints of left second finger injury. Patient states she was seated in the folding along chair when he leaned forward to put his shoes on in his chair collapsed on his left index finger. He reports pain 10/10 at that time. In the ED he received morphine 4 mg with some moderate improvement. States his last tetanus shot was around 10 years ago, so he received tetanus vaccination in the ED. Patient also received IV Rocephin. Consultation was placed to orthopedic surgery in the ED. Admitted patient for further medical management. 12/12: Seen pre and postoperatively. Finger dressing continues to fall off. Was fully attached. Afebrile S/p Irrigation debridement and open reduction fixation of left index finger open distal phalanx fracture Wound redressed by orthopedic surgery. Pain controlled without narcotics. Glucose in the 120s. Has [facility] follow-up outpatient okay to go home today. 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 Cont perioperative BB. Advance Care Planning: Total time spent [id number] with patient 16 minutes in discussion with goals of care, comfort care, end-of-life care, pain management, code status; patient names his (Nataly Mills) as surrogate decision-maker. Greater than 30 minutes spent on d/c home Discharge Information Condition at Discharge: Improved Follow Up: Weeks (1) Disposition/Orders: D/C to Home Scheduled Amlodipine Besylate (Amlodipine Besylate) 5 Mg Tablet, 5 MG PO DAILY for hypertension, (Reported) Entered as Reported by: LIZZY DALE on 12/12/2032 Last Action: Continued on 12/12/20758 by RAMONA NAIR MD Atorvastatin Calcium (Atorvastatin Calcium) 40 Mg Tablet, 80 MG PO DAILY for FOR CHOLESTEROL, #30 Ref 0 (Reported) Entered as Reported by: LIZZY DALE on 12/12/2032 Last Action: Continued on 12/12/20758 by RAMONA NAIR MD Carvedilol (Carvedilol ) 3.125 Mg Tablet, 3.125 MG PO BIDWMEALS for CARDIAC, (Reported) Entered as Reported by: LIZZY DALE on 12/12/2032 Last Action: Continued on 12/12/20758 by RAMONA NAIR MD Insulin Aspart (Novolog Flexpen) 100 Unit/1 Ml Insuln.pen, 15 UNIT SQ TID for glucose management, (Reported) Entered as Reported by: LIZZY DALE on 12/12/2032 Last Action: Reviewed on 12/12/20639 by LIZZY DALE Insulin Detemir (Levemir) 100 Unit/1 Ml Vial, 76 UNIT SQ HS for glucose management, (Reported) Entered as Reported by: LIZZY DALE on 12/12/2032 Last Action: Converted on 12/12/20758 by RAMONA NAIR MD Lisinopril (Lisinopril) 20 Mg Tablet, 1 TAB PO BID for hypertension, #30 Ref 5 (Reported) Entered as Reported by: LIZZY DALE on 12/12/2032 Last Action: Reviewed on 12/12/20639 by LIZZY DALE Metformin Hcl (Metformin Hcl) 1,000 Mg Tablet, 1,000 MG PO BID for ANTI- DIABETIC, Ref 0 (Reported) Entered as Reported by: LIZZY DALE on 12/12/2032 Last Action: Reviewed on 12/12/20639 by LIZZY DALE Justicifation of Admission Dx: Justifications for Admission: Justification of Admission Dx: N/A RAMONA NAIR MD Dec 13, 2020 11:55
[2020-12-13] MEDS ORDERED: CEPH500T PO (13:19)
[2020-12-13 15:00] VITALS: BP 144/71
--- NOTE | 2020-12-13 15:30 | NUR ---
Discharge Note: JOSEF MARTINEZ NEWARK Discharge instructions and discharge home medications reviewed with Patient and a copy given. All questions have been answered and understanding verbalized. The following instructions and handouts were given: information about follow up appointments, incision care, medications, activity, diet, etc. Discontinued lines and drains: IV line in right forearm removed, catheter tip intact. Patient discharged to home with self care with , patient ambulated to discharge vehicle.
== END 2020-12-13 15:30 | disposition home or self-care (01) | DRG 513 ==
LOC: ER 15:31 → 4 NORTH 18:24
PROVIDERS: ADMIT Family Medicine; ATTEND Family Medicine
PROC: 0PSS04Z Reposition Left Thumb Phalanx with Internal Fixation Device, Open Approach (ICD-10-PCS; 2020-12-12)
PROC: 0HDGXZZ Extraction of Left Hand Skin, External Approach (ICD-10-PCS; principal; 2020-12-12 07:30)
DX: S62.631B Displaced fracture of distal phalanx of left index finger, initial encounter for open fracture (principal); I50.32 Chronic diastolic (congestive) heart failure; S67.191A Crushing injury of left index finger, initial encounter; E11.9 Type 2 diabetes mellitus without complications; E78.00 Pure hypercholesterolemia, unspecified; E78.5 Hyperlipidemia, unspecified; I11.0 Hypertensive heart disease with heart failure; I25.10 Atherosclerotic heart disease of native coronary artery without angina pectoris; I25.2 Old myocardial infarction; W23.0XXA Caught, crushed, jammed, or pinched between moving objects, initial encounter; Z23 Encounter for immunization; Z82.49 Family history of ischemic heart disease and other diseases of the circulatory system; Z83.3 Family history of diabetes mellitus; Z87.891 Personal history of nicotine dependence; Z89.429 Acquired absence of other toe(s), unspecified side; Z95.1 Presence of aortocoronary bypass graft; Z96.641 Presence of right artificial hip joint
CPT/HCPCS: 36415; 73130; 76000; 80048; 82962; 85025; 87426; 90471; 90715; 96365; A4213; A4223; A4930; A6402; A6454; J0690; J1100; J1644; J1815; J2405; J2704; J3490; J7120; 99285-25; G0378